=== PATIENT | male | born 1970 | race Caucasian/White ===

== ENCOUNTER 2021-10-19 23:53 | Emergency (ER) | payer MEDICAID ==
[~2021-10-19] VITALS: Ht 177.8 cm; Wt 91.9 kg
[2021-10-20] VITALS: BP 135/94
--- NOTE | 2021-10-20 00:02 | NUR ---
PT TAKEN TO BED 03.
--- NOTE | 2021-10-20 00:03 | NUR ---
ANN HIRSCH SAW PT BEFORE TRIAGE.
[2021-10-20] MEDS ORDERED: IBUP-2218 PO (00:06)
[2021-10-20] MEDS ORDERED: CLIN300C52 PO (00:06)
[2021-10-20] MEDS ORDERED: CLINDAMYCIN 600 MG/4 ML VIAL IM ONE (00:10)
[2021-10-20] MEDS ORDERED: KETOROLAC 60 MG/2 ML VIAL IM ONE (00:10)
--- NOTE | 2021-10-20 00:49 | NUR ---
51 Y.O. M BIB SELF C/O TOOTH ACHE ON LEFT BOTTOM SIDE X1DAY. DENIES FEVER. LOWER LIP IS SWOLLEN. ROOMATE GAVE PT KEFLEX AND MOTRIN YESTERDAY. 6/10 PAIN. NO N/V/D, SOB NOR CHEST PAIN. A&OX4, SKIN INTACT, STEADY GAIT, AND VITALS WNL. DENIES HX, RX AND ALLERGIES
[2021-10-20 00:56] VITALS: BP 135/94
--- NOTE | 2021-10-20 00:56 | NUR ---
Patient discharged with v/s stable. Written and verbal after care instructions given and explained. Patient alert, oriented and verbalized understanding of instructions. Ambulatory with steady gait. All questions addressed prior to discharge. ID band removed. Patient advised to follow up with PMD. Rx of IBUPROFEN AND CLINDAMYCIN HCL given. Patient educated on indication of medication including possible reaction and side effects. Opportunity to ask questions provided and answered.
== END 2021-10-20 00:55 | disposition home or self-care (01) ==
LOC: MED 23:53
DX: K04.7 Periapical abscess without sinus (principal); R00.2 Palpitations
CPT/HCPCS: 96372; 99284; J1885; J3490

== ENCOUNTER 2021-11-06 13:08 | Emergency (ER) | payer MEDICAID ==
[~2021-11-06] VITALS: Ht 177.8 cm; Wt 84.4 kg
[~2021-11-06 13:08] MED LIST: CLIN300C52 PO; IBUP-2218 PO
[2021-11-06 13:15] VITALS: BP 144/88
--- NOTE | 2021-11-06 13:17 | NUR ---
Patient w/c assisted to bed 3
--- NOTE | 2021-11-06 13:33 | NUR ---
WALKED IN C/O ABD PAIN ONSET 5 HRS AGO. PT REPORTS EATING PUDDING EARLIER. STATES HX LACTOSE INTOLERANCE. VITALS STABLE. DENIES TRAUMA. AAOX4, AMBULATORY, VITALS STABLE.
[2021-11-06] MEDS ORDERED: KETOROLAC 15 MG/ML VIAL IM ONE (14:20)
--- NOTE | 2021-11-06 14:30 | NUR ---
EKG DONE AT BEDSIDE
--- NOTE | 2021-11-06 14:32 | NUR ---
PT WENT FOR CT
--- NOTE | 2021-11-06 14:42 | NUR ---
PT BACK FROM CT
[2021-11-06] MEDS ORDERED: NACL 0.9% 1,000 ML IV ONE (15:15)
[2021-11-06 15:31] LABS: BASOPHILS # (AUTO) 0.1 K/uL (0.00-0.22); BASOPHILS % (AUTO) 0.5 % (0.0-2.0); EOSINOPHILS # (AUTO) 0.1 K/uL (0-0.4); EOSINOPHILS % (AUTO) 0.8 % (0.0-4.0); HEMATOCRIT 41.8 % (36-52); HEMOGLOBIN 13.6 g/dL (12.0-18.0); LYMPHOCYTES # (AUTO) 1.6 K/uL (2.0-11.5); LYMPHOCYTES % (AUTO) 13.2 % (20.5-51.1); MEAN CORPUSCULAR HEMOGLOBIN 30 pg (27-31); MEAN CORPUSCULAR HGB CONC 33 g/dL (33-37); MEAN CORPUSCULAR VOLUME 91.1 fL (80-94); MONOCYTES # (AUTO) 0.7 K/uL (0.8-1.0); MONOCYTES % (AUTO) 5.8 % (1.7-9.3); NEUTROPHILS # (AUTO) 9.8 K/uL (1.8-7.7); NEUTROPHILS % (AUTO) 79.7 % (42.2-75.2); PLATELET COUNT (AUTO) 358 K/uL (140-450); RED BLOOD CELL COUNT(AUTO) 4.58 MIL/uL (4.20-6.10); WHITE BLOOD COUNT (AUTO) 12.2 K/uL (4.8-10.8)
[2021-11-06 15:52] LABS: ALBUMIN 3.6 g/dL (3.4-5.0); ANION GAP 11.3 (8-16); ASPARTATE AMINOTRANSFERASE 24 U/L (15-37); CARBON DIOXIDE 27.2 mmol/L (21-32); CHLORIDE 106 mmol/L (98-107); CREATININE 1.2 mg/dL (0.6-1.3); GFR ARICAN-AMERICAN 82 mL/min (>90); GLUCOSE 108 mg/dL (74-106); LIPASE 202 U/L (73-393); POTASSIUM 3.5 mmol/L (3.5-5.1); SODIUM SERUM 141 mmol/L (136-145); TOTAL BILIRUBIN 0.3 mg/dL (0.0-1.0); UREA NITROGEN, BLOOD 16 mg/dL (7-18)
[2021-11-06] MEDS ORDERED: cefTRIAXone 1,000 MG VIAL ONE (17:17)
[2021-11-06 17:28] VITALS: BP 133/68
[2021-11-06] MEDS ORDERED: CEPH-588 PO (18:19)
--- NOTE | 2021-11-06 18:26 | NUR ---
PT TO WAIT IN LOBBY FOR D.C PAPERS
--- NOTE | 2021-11-06 18:33 | NUR ---
Patient discharged with v/s stable. Written and verbal after care instructions ABOUT KIDNEY STONES given and explained. Patient alert, oriented and verbalized understanding of instructions. Ambulatory with steady gait. All questions addressed prior to discharge. ID band removed. Patient advised to follow up with PMD. Rx of KEFLEX given. Patient educated on indication of medication including possible reaction and side effects. Opportunity to ask questions provided and answered.
[2021-11-06 19:48] LABS: APPEARANCE,URINE CLEAR (CLEAR); BILIRUBIN,URINE NEGATIVE (NEGATIVE); BLOOD, URINE 3+ (NEGATIVE); COLOR,URINE YELLOW (YELLOW); LEUKOCYTE ESTERASE ,URINE NEGATIVE (NEGATIVE); NITRITE, URINE NEGATIVE (NEGATIVE); UGLUCOSE NEGATIVE (NEGATIVE)
[2021-11-06 20:13] LABS: BARBITURATE, URINE NEGATIVE ng/ml (NEG <=200); BENZODIAZEPINE, URINE NEGATIVE ng/mL (NEG <=200); CANNABINOID, URINE NEGATIVE ng/mL (NEG <=50); COCAINE, URINE NEGATIVE ng/mL (NEG <=300); OPIATE, URINE NEGATIVE ng/mL (NEG <=2000); PHENCYCLIDINE SCREEN,URINE NEGATIVE ng/mL (NEG <=25)
[2021-11-06 20:37] LABS: RBC,URINE 80-100 /HPF (0-5); WBC,URINE NONE SEEN /HPF (0-5)
== END 2021-11-06 18:33 | disposition home or self-care (01) ==
LOC: MED 13:08
DX: N20.0 Calculus of kidney (principal); Z20.822 Contact with and (suspected) exposure to COVID-19; F15.10 Other stimulant abuse, uncomplicated
CPT/HCPCS: 36415; 71045; 74176; 80053; 80305; 81001; 83690; 84484; 85025; 87040; 87086; 87426; 93005; 96361; 96365; 96372; 99285; G0482; J0696; J1885; Q0092

== ENCOUNTER 2022-03-28 06:28 | Emergency (ER) | payer MEDICAID ==
[~2022-03-28] VITALS: Ht 177.8 cm; Wt 88.5 kg
[~2022-03-28 06:28] MED LIST changes: +CEPH-588 PO
[2022-03-28 06:34] VITALS: BP 140/89
--- NOTE | 2022-03-28 06:38 | NUR ---
TO BED AMBULATORY
--- NOTE | 2022-03-28 06:45 | NUR ---
Patient BIB by family from home. C/O right flank pain x 1 day. Patient reported, had right flank pain since yesterday, no fever, no chills, Hx Kidney stone.
[2022-03-28] MEDS ORDERED: KETOROLAC 30 MG/ML VIAL IM ONE (06:50)
--- NOTE | 2022-03-28 06:54 | NUR ---
urine sample collected and sent to lab.
--- NOTE | 2022-03-28 07:11 | NUR ---
Report given to BROOKE Philippe and endorse care of patient.
--- NOTE | 2022-03-28 08:00 | NUR ---
RECEIVED REPORT FROM BROOKE DYER FOR CONTINUITY OF CARE. PATIENT PRESENTED TO ED WITH FLANK PAIN. PT STATES HE IS COMFORTABLE AT THIS TIME AFTER TORADOL SHOT PAIN AT 2/10 . DENIES N/V/D; SKIN IS PINK/WARM/DRY; AAOX4 WITH EVEN AND STEADY GAIT; LUNGS CLEAR BL; HR EVEN AND REGULAR; PT DENIES ANY FEVER, CP, SOB, OR COUGH AT THIS TIME; PATIENT STATES PAIN OF 0/10 AT THIS TIME; VSS; PATIENT POSITIONED FOR COMFORT; HOB ELEVATED; BEDRAILS UP X2; BED DOWN. PLAN OF CARE ONGOING
[2022-03-28 08:14] LABS: APPEARANCE,URINE CLEAR (CLEAR); BILIRUBIN,URINE NEGATIVE (NEGATIVE); BLOOD, URINE 3+ (NEGATIVE); COLOR,URINE YELLOW (YELLOW); LEUKOCYTE ESTERASE ,URINE NEGATIVE (NEGATIVE); NITRITE, URINE NEGATIVE (NEGATIVE); UGLUCOSE NEGATIVE (NEGATIVE)
[2022-03-28] MEDS ORDERED: TAMS0.4C96 PO (09:04)
[2022-03-28] MEDS ORDERED: NAPR-54 PO (09:04)
[2022-03-28 09:30] VITALS: BP 148/99
--- NOTE | 2022-03-28 09:31 | NUR ---
Patient discharged with v/s stable. Written and verbal after care instructions given and explained. Patient alert, oriented and verbalized understanding of instructions. Ambulatory with steady gait. All questions addressed prior to discharge. ID band removed. Patient advised to follow up with PMD. Rx of Flomax and Naprosyn given. Patient educated on indication of medication including possible reaction and side effects. Opportunity to ask questions provided and answered.
== END 2022-03-28 09:10 | disposition home or self-care (01) ==
LOC: MED 06:28
DX: N20.0 Calculus of kidney (principal); Z79.899 Other long term (current) drug therapy; Z87.442 Personal history of urinary calculi
CPT/HCPCS: 74176; 81003; 96372; 99284; J1885